=== PATIENT | female | born 1925 | race Caucasian/White ===

== ENCOUNTER 2016-04-13 12:44 | Inpatient (IN) | payer OTHER ==
[~2016-04-13] VITALS: Ht 152.4 cm; Wt 68.3 kg
--- NOTE | ~2016-04-13 | EKG ---
[place] [address] [place] [address] ELECTROCARDIOGRAM REPORT Name: RONSALLY [id number] Admission: 04/13/16 Attend Phys: Discharge: Date of : [birth year] Report #: [id number] THIS REPORT FOR: //name// [facility] ED Test Date: 2016-04-13 Test Time: 13:06:10 Pat Name: SALLY VELASQUEZ Department: Room: Gender: F [place]oa Room Operator: Sebastian : 1925 Requested By: Jose Angel Cox Order Number: [id number] MD: Barry Mensah Measurements Intervals [place] Rate: 62 P: 13 AL: 250 QRS: -44 QRSD: 152 T: 82 QT: 483 QTc: 491 Interpretive Statements Sinus rhythm Prolonged AL interval Probable left atrial enlargement Left bundle branch block Baseline wander in lead(s) V1 No previous ECG available for comparison Electronically Signed On 04-13-2016 15:00:41 [employer] by Barry Mensah [email or web address] <ELECTRONICALLY SIGNED> By: Barry Mensah MD 04/13/16 1500 1306 05 Barry Mensah MD /MONA
--- NOTE | ~2016-04-13 | HC ---
[facility] [place] [address] CONSULTATION Name: SALLY VELASQUEZ Room #: 455-P [facility] IN M.R.#: [id number] Admission: 04/13/16 Attend Phys: Yung Garrido MD Discharge: 04/16/16 Date of : [birth year] Report #: [id number] THIS REPORT FOR: //name// CC: Yung Walker PRIMARY CARE PHYSICIAN: Shawna Walker MD. REFERRAL PHYSICIAN: Yung Garrido MD. REASON FOR REFERRAL: Pneumonia. HISTORY OF PRESENT ILLNESS: The patient is an 89-year-old white female who presents to the Emergency Room with left thigh pain and right chest wall discomfort. Chest x-ray revealed infiltrates. The patient has been admitted for pneumonia. A pulmonary consultation was requested. The patient is normally followed by Dr. Jose Hicks in the pulmonary office. She has history of lobectomy about 10 years ago and pathology was felt to be benign. Review of records suggests that she has a history of trapped lung, undergoing decortication. PAST MEDICAL HISTORY: Remarkable for coronary artery disease, with myocardial infarction in the past, gastroesophageal reflux disease, collagenous colitis, hypertension, dyslipidemia, macular degeneration with being legally blind, moderate COPD. PAST SURGICAL HISTORY: Notable for cholecystectomy, herniorrhaphy, appendectomy. ALLERGIES: To LEELA INHIBITORS which causes rash; AMITRIPTYLINE, reactions not specified; CITRUS; CODEINE; IODINE; PENICILLIN; SULFA; HYDROCODONE; , reactions not specified. HOME MEDICATIONS: Include omeprazole, Advair, pentoxifylline, Ecotrin, colestipol, vitamin B12, Imodium, Coreg, Imdur, methimazole, , topicort eye drops. FAMILY HISTORY: Notable for coronary artery disease in mother. SOCIAL HISTORY: She is a lifetime nonsmoker. Denies any alcohol use. She is a [employer]. She has supportive family who lives in town. REVIEW OF SYSTEMS: As mentioned above, otherwise 10-point system review negative. [facility] [address] [place] [address] CONSULTATION Name: RONSALLY Euceda Room #: 455-P [facility] IN M.R.#: [id number] Admission: 04/13/16 Attend Phys: Yung Garrido MD Discharge: 04/16/16 Date of : [birth year] Report #: [id number] PHYSICAL EXAMINATION: GENERAL: She is awake, alert, in no apparent distress. VITAL SIGNS: Temperature is 98 degrees Fahrenheit, pulse is 62, respiratory rate is 20, blood pressure is ____ mmHg, saturation is 94%. HEENT: Normocephalic, atraumatic. NECK: Supple, without lymphadenopathy or thyromegaly. CHEST: Breath sounds are good bilaterally with a few scattered crackles in the right lung field. No wheezes. CARDIOVASCULAR: Normal S1, S2. There are no murmurs or gallop. There is no JVD. There is no carotid bruit. Pulses are 2+/4+ bilaterally. ABDOMEN: Soft, nontender, no organomegaly or masses felt. EXTREMITIES: There is no edema, cyanosis or clubbing. LABORATORY DATA: Chest x-ray on admission revealed multifocal right-sided infiltrates, small pleural effusion is noted on both lung [place]. Sodium 138, potassium 3.9, chloride 101, CO2 is 25, BUN is 7, creatinine 0.6. WBC 7500, hemoglobin is 10.9. IMPRESSION: 1. Cough and dyspnea and include chest pain in this 89-year-old white female. Chest x-ray shows right-sided infiltrates. 2. Community acquired pneumonia, suspected. 3. Chronic obstructive pulmonary disease by history. 4. Remote history of right lower lobe lobectomy felt to be loculated undergoing the decortication. Appears to be nonmalignant. 5. Coronary artery disease. 6. Hypertension. 7. Hypothyroidism. RECOMMENDATION: Agree with broad-spectrum antibiotics with azithromycin along with Rocephin. We will complete approximately 7-day course. DVT and GI prophylaxis will be addressed. The patient is up to date with immunizations including Pneumovax along with flu vaccine. Continue bronchodilators you are. She does not appear to have an acute exacerbation at this time. Thank you for the consultation. <ELECTRONICALLY SIGNED> By: Dustin Samayoa MD 04/23/16 1634 [id number] [id number] Dustin Samayoa MD /nt
[~2016-04-13 12:44] MED LIST: ACCUPRIL40 MG; ACCUPRIL40 MG PO; ADVAIR 250-501 EACH INH; ADVAIR HFA 230M12 GM; ALPRAZOLAM0.25 M1; AMITRIPTYLINE H10 M1; ANASPAZ0.125 MG SL; ANTIVERT25 MG PO; AQUA CARE71 GM; ASMANEX0.135 G1; ASMANEX0.135 GM IH; ASPIRIN325 PO; BONINE25 MG PO; CETAPHIL226 GM; COLACE100 MG PO; COLESTIPOL HCL1 G1 PO; COZAAR 50 MG TA50 M2 PO; ECOTRIN; ECOTRIN325 MG PO; ENTOCORT EC3 MG PO; HYDROCODONE-AP1 EAC6 PO; K-DUR 20 MEQ T20 MEQ; KEFLEX500 MG PO; LEVOTHROID; LOPERAMIDE 2 MG2 M1 PO; MECLIZINE HCL25 MG PO; METHIMAZOLE10 MG PO; NISOLDIPINE40 MG PO; NORTHYX10 MG; OMEPRAZOLE40 MG PO; PENTOXIFYLLINE400 MG PO; PRAVASTATIN SOD20 MG PO; PREDNISONE 10 M10 M1 PO; PRILOSEC40 MG PO; SIMVASTATIN40 MG; SKELAXIN 800 M800 M1; SKELAXIN 800 M800 M1 PO; SSD CREAM 1% 5050 GM; TEMOVATE15 GM; TOPICORT 0.25%15 G1; TOPICORT 0.25%15 GM; TRAMADOL 50 MG50 MG PO; TRIAMCINOLONE A80 G2; TYLENOL325 MG PO; ULTRAM 50MG TAB50 MG PO; UREA CREAM 40%1 TUBE; VITAMIN B-12500 MCG PO; VITAMIN B122500 MCG PO; ZOFRAN4 MG PO; [UNRECOGNIZED DRUG - OTHER]; [UNRECOGNIZED DRUG - OTHER]; ecotrin PO
[2016-04-13 12:45] VITALS: BP 174/65
[2016-04-13 13:42] LABS: ABSOLUTE NEUTROPHILS 5.6 thou/uL (1.4-8.2); BASOPHILS 0.5 % (0.0-2.0); HEMATOCRIT 32.7 % (37.0-47.0); HEMOGLOBIN 10.9 gm/dL (12.0-15.0); LYMPHOCYTES 13.7 % (24.0-44.0); MCH 26.3 pg (26.0-34.0); MCHC 33.3 % (28.0-37.0); MONOCYTES 9.2 % (1.0-8.0); PLATELET COUNT 296 thou/uL (150-400); POLYS 75.6 % (36.0-66.0); RBC 4.14 mil/uL (4.20-5.00); RDW 15.7 % (10.5-14.5); WBC 7.5 thou/uL (4.0-11.0)
[2016-04-13 13:45] LABS: ANION GAP 11 mmol/L (7-16); BUN 7 mg/dL (7-18); CALCIUM 8.8 mg/dL (8.5-10.1); CHLORIDE 98 mmol/L (98-107); CO2 26 mmol/L (21-32); CREATININE 0.7 mg/dL (0.6-1.3); GLUCOSE 104 mg/dL (70-99); POTASSIUM 3.7 mmol/L (3.5-5.1); SODIUM 135 mmol/L (136-145)
[2016-04-13 13:51] LABS: MANUAL DIFF NO
[2016-04-13 13:58] LABS: MAGNESIUM 1.8 mg/dL (1.8-2.4); NT-PRO BRAIN NAT PEPTIDE 3046 pg/mL (<300); TROPONIN-I < 0.04 ng/mL (<0.04-0.07)
[2016-04-13 16:23] VITALS: BP 168/58
[2016-04-13 19:46] VITALS: BP 154/48
[2016-04-13] MEDS ORDERED: LOPERAMIDE 2 MG2 M1 PO (20:17)
[2016-04-13] MEDS ORDERED: CARVEDILOL12.5 MG PO (20:21)
[2016-04-13] MEDS ORDERED: IMDUR 30 MG TAB30 M1 PO (20:22)
[2016-04-13] MEDS ORDERED: ECOTRIN325 MG PO (20:23)
[2016-04-13 23:31] VITALS: BP 158/61
[2016-04-14 03:50] VITALS: BP 163/69
[2016-04-14 05:43] LABS: HEMATOCRIT 31.8 % (37.0-47.0); HEMOGLOBIN 10.4 gm/dL (12.0-15.0); MCH 26.4 pg (26.0-34.0); MCHC 32.6 % (28.0-37.0); MCV 80.9 fL (80.0-100.0); RBC 3.92 mil/uL (4.20-5.00); RDW 16.1 % (10.5-14.5); WBC 5.4 thou/uL (4.0-11.0)
[2016-04-14 05:55] LABS: CALCIUM 8.5 mg/dL (8.5-10.1); CREATININE 0.6 mg/dL (0.6-1.3); POTASSIUM 3.9 mmol/L (3.5-5.1)
[2016-04-14 07:55] VITALS: BP 146/69
[2016-04-14 11:14] VITALS: BP 158/64
[2016-04-14] MEDS ORDERED: IMDUR 60 MG TAB60 M1 PO (12:48)
[2016-04-14 16:48] VITALS: BP 149/51
[2016-04-14 19:21] VITALS: BP 174/56
[2016-04-15 00:03] VITALS: BP 156/63
[2016-04-15 04:13] VITALS: BP 172/61
[2016-04-15 08:00] VITALS: BP 150/71
[2016-04-15 11:13] VITALS: BP 150/71
[2016-04-15 15:24] VITALS: BP 154/70
[2016-04-15 21:19] VITALS: BP 171/70
[2016-04-16 05:17] VITALS: BP 147/78
[2016-04-16 06:23] LABS: HEMATOCRIT 34.6 % (37.0-47.0); HEMOGLOBIN 11.1 gm/dL (12.0-15.0); MCHC 32.2 % (28.0-37.0); MCV 80.9 fL (80.0-100.0); RBC 4.28 mil/uL (4.20-5.00); RDW 15.6 % (10.5-14.5)
[2016-04-16 06:46] LABS: CALCIUM 8.5 mg/dL (8.5-10.1); CREATININE 0.5 mg/dL (0.6-1.3); POTASSIUM 3.1 mmol/L (3.5-5.1)
[2016-04-16 08:17] VITALS: BP 147/80
[2016-04-16 12:34] VITALS: BP 148/67
[2016-04-16] MEDS ORDERED: CEFDINIR300 MG PO (15:00)
[2016-04-16] MEDS ORDERED: TRIMETHOPRIM /P10 M1 OPHTHALMIC (15:01)
[2016-04-16] MEDS ORDERED: VENTOLIN HFA 1818 GM INH (15:02)
[2016-04-16 16:42] VITALS: BP 148/67
== END 2016-04-16 17:40 | disposition home or self-care (01) | DRG 871 ==
LOC: ER 12:44 → 4W 14:56 → EROBS 14:56 → 4W 15:20
PROVIDERS: Emergency Medicine; Hospitalist
DX: A41.9 Sepsis, unspecified organism (principal); J18.9 Pneumonia, unspecified organism; I10 Essential (primary) hypertension; I25.10 Atherosclerotic heart disease of native coronary artery without angina pectoris; M19.90 Unspecified osteoarthritis, unspecified site; M48.06 Spinal stenosis, lumbar region; I73.9 Peripheral vascular disease, unspecified; H35.30 Unspecified macular degeneration; E78.00 Pure hypercholesterolemia, unspecified; E05.00 Thyrotoxicosis with diffuse goiter without thyrotoxic crisis or storm; H10.9 Unspecified conjunctivitis; K21.9 Gastro-esophageal reflux disease without esophagitis; E78.5 Hyperlipidemia, unspecified; J44.9 Chronic obstructive pulmonary disease, unspecified; E03.9 Hypothyroidism, unspecified; R19.7 Diarrhea, unspecified; I25.2 Old myocardial infarction; Z95.5 Presence of coronary angioplasty implant and graft; Z98.890 Other specified postprocedural states; Z90.49 Acquired absence of other specified parts of digestive tract; Z90.710 Acquired absence of both cervix and uterus; Z88.8 Allergy status to other drugs, medicaments and biological substances; Z88.2 Allergy status to sulfonamides; Z88.0 Allergy status to penicillin; Z88.6 Allergy status to analgesic agent; Z91.041 Radiographic dye allergy status; Z79.82 Long term (current) use of aspirin; Z79.899 Other long term (current) drug therapy; Z82.49 Family history of ischemic heart disease and other diseases of the circulatory system; K58.0 Irritable bowel syndrome with diarrhea
CPT/HCPCS: 10045

== ENCOUNTER → 2016-12-22 | Outpatient (CLI) | payer OTHER ==
[~2016-12-22] MED LIST changes: +CARVEDILOL12.5 MG PO; +CEFDINIR300 MG PO; +IMDUR 30 MG TAB30 M1 PO; +IMDUR 60 MG TAB60 M1 PO; +TRIMETHOPRIM /P10 M1 OPHTHALMIC; +VENTOLIN HFA 1818 GM INH
== END ==
LOC: RAD 12:27
DX: J45.909 Unspecified asthma, uncomplicated (principal)